=== PATIENT | female | born 1965 | race Caucasian/White ===

== ENCOUNTER → 2017-09-07 | Outpatient (CLI) | payer BC | END | disposition home or self-care (01) | LOC: CFH 11:51 | PROVIDERS: ATTEND Family Medicine | DX: Z12.31 Encounter for screening mammogram for malignant neoplasm of breast (principal); R92.1 Mammographic calcification found on diagnostic imaging of breast; Z80.3 Family history of malignant neoplasm of breast | CPT/HCPCS: 77067 ==

== ENCOUNTER → 2017-09-24 | Outpatient (CLI) | payer BC | LOC: CFH 13:25 | PROVIDERS: ATTEND Family Medicine | DX: R92.1 Mammographic calcification found on diagnostic imaging of breast (principal); Z80.3 Family history of malignant neoplasm of breast | CPT/HCPCS: 77065 ==

== ENCOUNTER → 2017-09-29 | Outpatient (CLI) | payer BC ==
[~2017-09-29] MED LIST: LIDOCAINE 1%, 20ML ONE
== END | disposition home or self-care (01) ==
LOC: CFH 09:40
PROVIDERS: ATTEND Family Medicine
DX: R92.1 Mammographic calcification found on diagnostic imaging of breast (principal)
CPT/HCPCS: 19081; 88305; J3490

== ENCOUNTER → 2017-10-21 | Outpatient (CLI) | payer BC ==
[~2017-10-21] MED LIST changes: +AMLO5TAB2 PO; +FLUO40CA2 PO; +LEVO125T PO; -LIDOCAINE 1%, 20ML ONE; +LOSA100T6 PO
[2017-10-21 15:05] LABS: ALANINE AMINOTRANSFERASE 35 U/L (12-78); ALBUMIN 3.8 g/dL (3.4-5.0); ANION GAP 8 mmol/L (5-15); CALCIUM 8.6 mg/dL (8.5-10.1); CHLORIDE 106 mmol/L (98-107)
[2017-10-21 15:07] LABS: ALKALINE PHOSPHATASE 80 U/L (45-117); BILIRUBIN,TOTAL 0.5 mg/dL (0.2-1.0); TOTAL PROTEIN 7.6 g/dL (6.4-8.2)
== END | disposition home or self-care (01) ==
LOC: STAR 13:59
PROVIDERS: ATTEND Surgery
DX: Z01.818 Encounter for other preprocedural examination (principal); D05.10 Intraductal carcinoma in situ of unspecified breast
CPT/HCPCS: 36415; 80053

== ENCOUNTER 2017-10-25 10:10 | Day surgery (SDC) | payer BC ==
[~2017-10-25] VITALS: Ht 157.5 cm; Wt 77.0 kg
[~2017-10-25 10:10] MED LIST changes: +BUPIVACAINE/PF-EPI 0.5% 1:200K ONE
[2017-10-25] MEDS ORDERED: LACTATED RINGERS 1,000 ML IV SCH (11:58)
[2017-10-25] MEDS ORDERED: ONDANSETRON ODT 8 MG PO ONE (12:00)
[2017-10-25] MEDS ORDERED: OxyconTIN ER 10 MG TAB.ER PO ONE (12:00)
[2017-10-25] MEDS ORDERED: ACETAMINOPHEN 500 MG TABLET PO ONE (12:00)
[2017-10-25] MEDS ORDERED: GABAPENTIN 300 MG CAPSULE PO ONE (12:00)
[2017-10-25] MEDS ORDERED: GABAPENTIN 300 MG CAPSULE ONE (12:05)
[2017-10-25] MEDS ORDERED: OxyconTIN ER 10 MG TAB.ER ONE (12:06)
[2017-10-25] MEDS ORDERED: ONDANSETRON ODT 8 MG ONE (12:07)
[2017-10-25] MEDS ORDERED: ACETAMINOPHEN 500 MG TABLET ONE (12:07)
[2017-10-25] MEDS ORDERED: SODIUM BICARBONATE 4.2%, 5ML ONE (12:13)
[2017-10-25] MEDS ORDERED: LIDOCAINE 1%, 20ML ONE (12:13)
[2017-10-25] MEDS ORDERED: FENTANYL PF 100 MCG/2ML ONE (12:15)
[2017-10-25] MEDS ORDERED: MIDAZOLAM 1 MG/ML, 2ML ONE (12:15)
[2017-10-25] MEDS ORDERED: hydrALAzine 20 MG/ML, 1ML IV PRN (13:00)
[2017-10-25] MEDS ORDERED: OXYcodone 5 MG/5 ML ORAL.SOL UDC PO PRN (13:00)
[2017-10-25] MEDS ORDERED: ONDANSETRON 2MG/ML, 2ML IVPush PRN (13:00)
[2017-10-25] MEDS ORDERED: ALBUTEROL/IPRATROPIUM 2.5MG/0.5MG, 3 ML NPPB PRN (13:00)
[2017-10-25] MEDS ORDERED: PROMETHAZINE 25 MG/ML, 1ML IV PRN (13:00)
[2017-10-25] MEDS ORDERED: morphine SULFATE 10 MG/ML, 1ML IV PRN (13:00)
[2017-10-25] MEDS ORDERED: METOCLOPRAMIDE 5 MG/ML, 2ML IV PRN (13:00)
[2017-10-25] MEDS ORDERED: MIDAZOLAM 1 MG/ML, 2ML IV PRN (13:00)
[2017-10-25] MEDS ORDERED: MEPERIDINE/PF 25MG/0.5ML IVPush PRN (13:00)
[2017-10-25] MEDS ORDERED: LORazepam 2 MG/ML, 1ML IVPush PRN (13:00)
[2017-10-25] MEDS ORDERED: DIAZEPAM 5 MG/ML, 2ML IVPush PRN (13:00)
[2017-10-25] MEDS ORDERED: PROMETHAZINE 12.5 MG SUPP PR PRN (13:00)
[2017-10-25] MEDS ORDERED: LABETALOL 5MG/ML, 20ML IV PRN (13:00)
[2017-10-25] MEDS ORDERED: FENTANYL PF 100 MCG/2ML IV PRN (13:00)
[2017-10-25] MEDS ORDERED: CEFAZOLIN 1,000 MG ONE (13:11)
[2017-10-25] MEDS ORDERED: EPHEDRINE 50 MG/ML, 1ML ONE (13:11)
[2017-10-25] MEDS ORDERED: KETOROLAC 30 MG/1 ML ONE (13:11)
[2017-10-25] MEDS ORDERED: PROPOFOL 10 MG/ML, 20ML ONE (13:11)
[2017-10-25] MEDS ORDERED: DEXAMETHASONE 4 MG/ML, 1ML ONE (13:11)
== END 2017-10-25 15:45 | disposition home or self-care (01) ==
LOC: SDC 10:10 → EDSTATUS 14:00 → OUT 15:45
PROVIDERS: ATTEND Surgery
DX: D05.11 Intraductal carcinoma in situ of right breast (principal); I10 Essential (primary) hypertension; Z98.890 Other specified postprocedural states; Z98.51 Tubal ligation status; Z88.5 Allergy status to narcotic agent; Z88.8 Allergy status to other drugs, medicaments and biological substances; Z72.89 Other problems related to lifestyle; Z87.891 Personal history of nicotine dependence
CPT/HCPCS: 19281; 19301; 76098; 88305; 88307; C1729; J0690; J1100; J1885; J2250; J2704; J3010; J3490; J7120; Q0162

== ENCOUNTER → 2017-11-19 | Outpatient (CLI) | payer BC ==
[~2017-11-19] MED LIST changes: -BUPIVACAINE/PF-EPI 0.5% 1:200K ONE
== END | disposition home or self-care (01) ==
LOC: ROC 10:02
PROVIDERS: ATTEND Radiology Radiation Oncology
DX: Z08 Encounter for follow-up examination after completed treatment for malignant neoplasm (principal); D05.11 Intraductal carcinoma in situ of right breast; I10 Essential (primary) hypertension; E03.9 Hypothyroidism, unspecified; Z17.0 Estrogen receptor positive status [ER+]; Z83.3 Family history of diabetes mellitus
CPT/HCPCS: 99214; G0463

== ENCOUNTER → 2018-03-07 | Outpatient (CLI) | payer BC ==
[~2018-03-07] MED LIST changes: -AMLO5TAB2 PO; +AMLO5TAB7 PO; -LOSA100T6 PO; +LOSA100T7 PO
== END | disposition home or self-care (01) ==
LOC: ROC 12:49
PROVIDERS: ATTEND Radiology Radiation Oncology
DX: C50.511 Malignant neoplasm of lower-outer quadrant of right female breast (principal)
CPT/HCPCS: 99212; G0463